=== PATIENT | male | born 1955 | race Caucasian/White ===

== ENCOUNTER 2022-05-21 13:30 | Inpatient (IN) | payer MEDICARE ==
[~2022-05-21] VITALS: Ht 165.1 cm; Wt 187.0 kg
[2022-05-21 16:35] VITALS: BP 129/78
[2022-05-21] MEDS ORDERED: ACETAMINOPHEN 325 MG TABLET PO PRN ×2 (17:00)
[2022-05-21 20:02] VITALS: BP 113/67
[2022-05-21] MEDS: ETHYL ALCOHOL 62% ANTISEPTIC NASAL SANITIZER 0.6 ML AMPUL NASAL SCH (20:49)
[2022-05-21] MEDS: DOCUSATE SODIUM 100 MG CAPSULE PO SCH (20:49)
[2022-05-21] MEDS: MELATONIN 3 MG TABLET PO PRN (20:49)
[2022-05-21] MEDS: ATORVASTATIN CALCIUM 40 MG TABLET PO SCH (20:49)
[2022-05-21] MEDS: SENNA 187 MG TABLET PO SCH (20:49)
[2022-05-21] MEDS: TAMSULOSIN HCL 0.4 MG CAPSULE PO SCH (20:49)
[2022-05-21] MEDS: ChlorproMAZINE HCL 25 MG TABLET PO PRN (23:52)
[2022-05-22] MEDS: ENOXAPARIN SODIUM 40 MG/0.4 ML PF SYRINGE SQ SCH (07:56)
[2022-05-22] MEDS: ETHYL ALCOHOL 62% ANTISEPTIC NASAL SANITIZER 0.6 ML AMPUL NASAL SCH ×2 (07:56→21:17)
[2022-05-22] MEDS: AmLODIPine BESYLATE 10 MG TABLET PO SCH (07:57)
[2022-05-22] MEDS: DOCUSATE SODIUM 100 MG CAPSULE PO SCH ×2 (07:57→20:25)
[2022-05-22] MEDS: LISINOPRIL 10 MG TABLET PO SCH (07:57)
[2022-05-22] MEDS: ASPIRIN 81 MG CHEWABLE TABLET PO SCH (07:57)
[2022-05-22 08:00] VITALS: BP 114/66
[2022-05-22 08:00] LABS: BASOPHILS % (AUTO) 0.1 % (0.0-2.0); EOSINOPHILS % (AUTO) 2.7 % (1.0-6.0); HEMATOCRIT 35.3 % (41-53); HEMOGLOBIN 11.9 g/dL (13.5-17.5); LYMPHOCYTES % (AUTO) 12.2 % (22.0-44.0); MEAN CORPUSCULAR HEMOGLOBIN 31.1 pg (26.0-34.0); MEAN CORPUSCULAR HGB CONC 33.7 G/dL (31.0-37.0); MEAN CORPUSCULAR VOLUME 92 fL (80-100); MONOCYTES # (AUTO) 0.4 K/uL (0.1-1.0); MONOCYTES % (AUTO) 5.3 % (2.0-9.0); NEUTROPHILS # (AUTO) 6.6 K/uL (1.8-7.7); NEUTROPHILS % (AUTO) 79.7 % (40.0-70.0); PLATELET COUNT (AUTO) 310 K/uL (150-450); RED BLOOD CELL COUNT(AUTO) 3.83 MIL/uL (4.50-5.90); RED CELL DISTRIBUTION WIDTH 13.8 % (11.5-14.5)
[2022-05-22 08:24] LABS: ALANINE AMINOTRANSFERASE 68 U/L (12-78); ALBUMIN 2.6 g/dL (3.4-5.0); ALKALINE PHOSPHATASE 75 U/L (46-116); ANION GAP 6 mmol/L (8-16); ASPARTATE AMINOTRANSFERASE 38 U/L (15-37); BILIRUBIN,TOTAL 0.4 mg/dL (0.1-1.0); CALCIUM, TOTAL 8.8 mg/dL (8.8-10.5); CARBON DIOXIDE 29 mmol/L (22-29); CHLORIDE 107 mmol/L (98-107); CREATININE 1.08 mg/dL (0.60-1.30); GLUCOSE,RANDOM 118 mg/dL (70-110); POTASSIUM 4.4 mmol/L (3.5-5.1); SODIUM SERUM 142 mmol/L (136-145); TOTAL PROTEIN, SERUM 6.7 g/dL (6.4-8.2); UREA NITROGEN, BLOOD 24 mg/dL (7-18)
[2022-05-22 08:25] LABS: GLOMERULAR FILTR. RATE CALC > 60 mL/min (>60)
[2022-05-22] MEDS: ChlorproMAZINE HCL 25 MG TABLET PO PRN ×2 (15:41→21:42)
[2022-05-22 20:00] VITALS: BP 138/78
[2022-05-22] MEDS: SENNA 187 MG TABLET PO SCH (20:26)
[2022-05-22] MEDS: MELATONIN 3 MG TABLET PO PRN (21:16)
[2022-05-22] MEDS: ATORVASTATIN CALCIUM 40 MG TABLET PO SCH (21:16)
[2022-05-22] MEDS: TAMSULOSIN HCL 0.4 MG CAPSULE PO SCH (21:17)
[2022-05-23] MEDS ORDERED: FAMOTIDINE 20 MG TABLET PO SCH (07:00)
[2022-05-23 07:23] LABS: CHOL/HDL RATIO 3.1 (4.2-7.3)
[2022-05-23] MEDS: ETHYL ALCOHOL 62% ANTISEPTIC NASAL SANITIZER 0.6 ML AMPUL NASAL SCH ×2 (07:52→20:50)
[2022-05-23] MEDS: ASPIRIN 81 MG CHEWABLE TABLET PO SCH (07:53)
[2022-05-23] MEDS: ENOXAPARIN SODIUM 40 MG/0.4 ML PF SYRINGE SQ SCH (07:53)
[2022-05-23] MEDS: DOCUSATE SODIUM 100 MG CAPSULE PO SCH ×2 (07:53→20:51)
[2022-05-23] MEDS: AmLODIPine BESYLATE 10 MG TABLET PO SCH (07:53)
[2022-05-23] MEDS: LISINOPRIL 10 MG TABLET PO SCH (07:53)
[2022-05-23 08:15] VITALS: BP 114/59
[2022-05-23] MEDS: ChlorproMAZINE HCL 25 MG TABLET PO PRN (14:23)
[2022-05-23] MEDS: BACLOFEN 10 MG TABLET PO SCH ×2 (17:24→20:51)
[2022-05-23 20:00] VITALS: BP 119/59
[2022-05-23] MEDS: ATORVASTATIN CALCIUM 40 MG TABLET PO SCH (20:50)
[2022-05-23] MEDS: MELATONIN 3 MG TABLET PO PRN (20:51)
[2022-05-23] MEDS: TAMSULOSIN HCL 0.4 MG CAPSULE PO SCH (20:51)
[2022-05-23] MEDS: SENNA 187 MG TABLET PO SCH (20:51)
[2022-05-24] MEDS: PANTOPRAZOLE SODIUM 40 MG DR TABLET PO SCH (06:19)
[2022-05-24] MEDS: ASPIRIN 81 MG CHEWABLE TABLET PO SCH (07:56)
[2022-05-24] MEDS: DOCUSATE SODIUM 100 MG CAPSULE PO SCH ×3 (07:57→22:24)
[2022-05-24] MEDS: ENOXAPARIN SODIUM 40 MG/0.4 ML PF SYRINGE SQ SCH (07:57)
[2022-05-24] MEDS: AmLODIPine BESYLATE 10 MG TABLET PO SCH (07:57)
[2022-05-24] MEDS: BACLOFEN 10 MG TABLET PO SCH ×3 (07:57→22:25)
[2022-05-24] MEDS: ETHYL ALCOHOL 62% ANTISEPTIC NASAL SANITIZER 0.6 ML AMPUL NASAL SCH ×2 (07:57→21:07)
[2022-05-24] MEDS: LISINOPRIL 10 MG TABLET PO SCH (07:57)
[2022-05-24 08:15] VITALS: BP 105/53
[2022-05-24 21:03] VITALS: BP 136/69
[2022-05-24] MEDS: ATORVASTATIN CALCIUM 40 MG TABLET PO SCH (22:24)
[2022-05-24] MEDS: SENNA 187 MG TABLET PO SCH (22:25)
[2022-05-24] MEDS: TAMSULOSIN HCL 0.4 MG CAPSULE PO SCH (22:27)
[2022-05-25] MEDS: PANTOPRAZOLE SODIUM 40 MG DR TABLET PO SCH (06:28)
[2022-05-25] MEDS: BACLOFEN 10 MG TABLET PO SCH ×3 (07:42→21:00)
[2022-05-25 08:01] VITALS: BP 128/71
[2022-05-25] MEDS: DOCUSATE SODIUM 100 MG CAPSULE PO SCH ×2 (09:00→20:59)
[2022-05-25] MEDS: ChlorproMAZINE HCL 25 MG TABLET PO PRN (10:19)
[2022-05-25] MEDS: AmLODIPine BESYLATE 10 MG TABLET PO SCH (10:23)
[2022-05-25] MEDS: ASPIRIN 81 MG CHEWABLE TABLET PO SCH (10:25)
[2022-05-25] MEDS: ENOXAPARIN SODIUM 40 MG/0.4 ML PF SYRINGE SQ SCH (10:27)
[2022-05-25] MEDS: ETHYL ALCOHOL 62% ANTISEPTIC NASAL SANITIZER 0.6 ML AMPUL NASAL SCH ×2 (10:34→20:59)
[2022-05-25] MEDS: LISINOPRIL 10 MG TABLET PO SCH (10:34)
[2022-05-25 20:01] VITALS: BP 107/57
[2022-05-25] MEDS: TAMSULOSIN HCL 0.4 MG CAPSULE PO SCH (20:59)
[2022-05-25] MEDS: SENNA 187 MG TABLET PO SCH (21:00)
[2022-05-25] MEDS: ATORVASTATIN CALCIUM 40 MG TABLET PO SCH (21:00)
[2022-05-26 07:35] VITALS: BP 133/82
[2022-05-26] MEDS: PANTOPRAZOLE SODIUM 40 MG DR TABLET PO SCH (07:56)
[2022-05-26] MEDS: ASPIRIN 81 MG CHEWABLE TABLET PO SCH (08:21)
[2022-05-26] MEDS: ETHYL ALCOHOL 62% ANTISEPTIC NASAL SANITIZER 0.6 ML AMPUL NASAL SCH ×2 (08:21→20:25)
[2022-05-26] MEDS: LISINOPRIL 10 MG TABLET PO SCH (08:22)
[2022-05-26] MEDS: AmLODIPine BESYLATE 10 MG TABLET PO SCH (08:22)
[2022-05-26] MEDS: DOCUSATE SODIUM 100 MG CAPSULE PO SCH ×2 (08:22→20:25)
[2022-05-26] MEDS: BACLOFEN 10 MG TABLET PO SCH ×3 (08:22→20:25)
[2022-05-26] MEDS: ENOXAPARIN SODIUM 40 MG/0.4 ML PF SYRINGE SQ SCH (08:22)
[2022-05-26] MEDS: MECLIZINE HCL 25 MG TABLET PO PRN (16:17)
[2022-05-26 20:00] VITALS: BP 132/69
[2022-05-26] MEDS: ATORVASTATIN CALCIUM 40 MG TABLET PO SCH (20:25)
[2022-05-26] MEDS: TAMSULOSIN HCL 0.4 MG CAPSULE PO SCH (20:25)
[2022-05-26] MEDS: SENNA 187 MG TABLET PO SCH (20:26)
[2022-05-27] MEDS: PANTOPRAZOLE SODIUM 40 MG DR TABLET PO SCH (06:52)
[2022-05-27] MEDS: ASPIRIN 81 MG CHEWABLE TABLET PO SCH (07:45)
[2022-05-27] MEDS: ETHYL ALCOHOL 62% ANTISEPTIC NASAL SANITIZER 0.6 ML AMPUL NASAL SCH ×2 (07:45→21:58)
[2022-05-27] MEDS: BACLOFEN 10 MG TABLET PO SCH ×3 (07:46→21:58)
[2022-05-27] MEDS: LISINOPRIL 10 MG TABLET PO SCH (07:46)
[2022-05-27] MEDS: AmLODIPine BESYLATE 10 MG TABLET PO SCH (07:46)
[2022-05-27] MEDS: DOCUSATE SODIUM 100 MG CAPSULE PO SCH ×2 (07:46→21:00)
[2022-05-27] MEDS: ENOXAPARIN SODIUM 40 MG/0.4 ML PF SYRINGE SQ SCH (07:46)
[2022-05-27 08:33] VITALS: BP 138/72
[2022-05-27 20:00] VITALS: BP 119/68
[2022-05-27] MEDS: SENNA 187 MG TABLET PO SCH (21:00)
[2022-05-27] MEDS: ATORVASTATIN CALCIUM 40 MG TABLET PO SCH (21:57)
[2022-05-27] MEDS: TAMSULOSIN HCL 0.4 MG CAPSULE PO SCH (21:57)
[2022-05-28] MEDS: PANTOPRAZOLE SODIUM 40 MG DR TABLET PO SCH (07:04)
[2022-05-28] MEDS: ETHYL ALCOHOL 62% ANTISEPTIC NASAL SANITIZER 0.6 ML AMPUL NASAL SCH ×2 (08:06→20:11)
[2022-05-28] MEDS: ENOXAPARIN SODIUM 40 MG/0.4 ML PF SYRINGE SQ SCH (08:06)
[2022-05-28] MEDS: ASPIRIN 81 MG CHEWABLE TABLET PO SCH (08:06)
[2022-05-28] MEDS: BACLOFEN 10 MG TABLET PO SCH ×3 (08:07→20:12)
[2022-05-28] MEDS: AmLODIPine BESYLATE 10 MG TABLET PO SCH (08:08)
[2022-05-28] MEDS: LISINOPRIL 10 MG TABLET PO SCH (08:08)
[2022-05-28] MEDS: DOCUSATE SODIUM 100 MG CAPSULE PO SCH ×2 (08:10→20:12)
[2022-05-28 08:30] VITALS: BP 131/67
[2022-05-28] MEDS: TAMSULOSIN HCL 0.4 MG CAPSULE PO SCH (20:11)
[2022-05-28] MEDS: ATORVASTATIN CALCIUM 40 MG TABLET PO SCH (20:12)
[2022-05-28] MEDS: SENNA 187 MG TABLET PO SCH (20:12)
[2022-05-28 21:00] VITALS: BP 129/61
[2022-05-29] MEDS: PANTOPRAZOLE SODIUM 40 MG DR TABLET PO SCH (06:18)
[2022-05-29 08:05] VITALS: BP 147/82
[2022-05-29] MEDS: ASPIRIN 81 MG CHEWABLE TABLET PO SCH (08:22)
[2022-05-29] MEDS: DOCUSATE SODIUM 100 MG CAPSULE PO SCH ×2 (08:22→21:52)
[2022-05-29] MEDS: ETHYL ALCOHOL 62% ANTISEPTIC NASAL SANITIZER 0.6 ML AMPUL NASAL SCH ×2 (08:23→21:51)
[2022-05-29] MEDS: ENOXAPARIN SODIUM 40 MG/0.4 ML PF SYRINGE SQ SCH (08:23)
[2022-05-29] MEDS: AmLODIPine BESYLATE 10 MG TABLET PO SCH (08:23)
[2022-05-29] MEDS: BACLOFEN 10 MG TABLET PO SCH ×3 (08:23→21:53)
[2022-05-29] MEDS: LISINOPRIL 10 MG TABLET PO SCH (08:23)
[2022-05-29 10:56] VITALS: BP 147/82
[2022-05-29] MEDS: MECLIZINE HCL 25 MG TABLET PO PRN (13:31)
[2022-05-29 20:30] VITALS: BP 125/72
[2022-05-29] MEDS: ATORVASTATIN CALCIUM 40 MG TABLET PO SCH (21:52)
[2022-05-29] MEDS: TAMSULOSIN HCL 0.4 MG CAPSULE PO SCH (21:52)
[2022-05-29] MEDS: SENNA 187 MG TABLET PO SCH (21:53)
[2022-05-30] MEDS: PANTOPRAZOLE SODIUM 40 MG DR TABLET PO SCH (06:53)
[2022-05-30] MEDS: ENOXAPARIN SODIUM 40 MG/0.4 ML PF SYRINGE SQ SCH (07:23)
[2022-05-30] MEDS: DOCUSATE SODIUM 100 MG CAPSULE PO SCH ×2 (07:26→20:19)
[2022-05-30] MEDS: AmLODIPine BESYLATE 10 MG TABLET PO SCH (07:26)
[2022-05-30] MEDS: BACLOFEN 10 MG TABLET PO SCH (07:26)
[2022-05-30] MEDS: LISINOPRIL 10 MG TABLET PO SCH (07:26)
[2022-05-30] MEDS: ASPIRIN 81 MG CHEWABLE TABLET PO SCH (07:26)
[2022-05-30] MEDS: ETHYL ALCOHOL 62% ANTISEPTIC NASAL SANITIZER 0.6 ML AMPUL NASAL SCH ×2 (07:29→20:19)
[2022-05-30 08:33] VITALS: BP 123/79
[2022-05-30] MEDS ORDERED: BACLOFEN 10 MG TABLET PO PRN (10:15)
[2022-05-30] MEDS: ATORVASTATIN CALCIUM 40 MG TABLET PO SCH (20:19)
[2022-05-30] MEDS: SENNA 187 MG TABLET PO SCH (20:19)
[2022-05-30] MEDS: TAMSULOSIN HCL 0.4 MG CAPSULE PO SCH (20:19)
[2022-05-30] MEDS: MELATONIN 3 MG TABLET PO PRN (20:25)
[2022-05-30 21:00] VITALS: BP 127/80
[2022-05-31] MEDS: PANTOPRAZOLE SODIUM 40 MG DR TABLET PO SCH (06:10)
[2022-05-31] MEDS: ENOXAPARIN SODIUM 40 MG/0.4 ML PF SYRINGE SQ SCH (07:17)
[2022-05-31] MEDS: ETHYL ALCOHOL 62% ANTISEPTIC NASAL SANITIZER 0.6 ML AMPUL NASAL SCH (07:19)
[2022-05-31] MEDS: ASPIRIN 81 MG CHEWABLE TABLET PO SCH (07:19)
[2022-05-31] MEDS: LISINOPRIL 10 MG TABLET PO SCH (07:20)
[2022-05-31] MEDS: DOCUSATE SODIUM 100 MG CAPSULE PO SCH (07:20)
[2022-05-31] MEDS: AmLODIPine BESYLATE 10 MG TABLET PO SCH (07:20)
[2022-05-31 08:08] VITALS: BP 103/68
[2022-05-31] MEDS ORDERED: MECL-134 PO (08:36)
[2022-05-31] MEDS ORDERED: TAMS-13 PO ×2 (08:36→10:08)
[2022-05-31] MEDS ORDERED: PANT-31 PO ×2 (08:36→10:08)
[2022-05-31] MEDS ORDERED: ASPI-1450 PO (08:36)
[2022-05-31] MEDS ORDERED: AMLO-258 PO ×2 (08:36→10:08)
[2022-05-31] MEDS ORDERED: LISI-893 PO ×2 (08:36→10:08)
[2022-05-31] MEDS ORDERED: DOCU-385 PO ×2 (08:36→10:08)
[2022-05-31] MEDS ORDERED: ATOR40TA28 PO (08:36)
[2022-05-31] MEDS ORDERED: BACL10TA PO ×2 (08:36→10:08)
[2022-05-31] MEDS ORDERED: CHLO25TA69 PO (08:36)
[2022-05-31] MEDS ORDERED: ATOR40TA71 PO (10:08)
[2022-05-31] MEDS ORDERED: ASPI81 PO (10:08)
== END 2022-05-31 14:00 | disposition home or self-care (01) | DRG 64 ==
LOC: 2WR 16:36
PROVIDERS: ADMIT Physical Medicine & Rehabilitation; ATTEND Physical Medicine & Rehabilitation
DX: I63.9 Cerebral infarction, unspecified (principal); J69.0 Pneumonitis due to inhalation of food and vomit; E46 Unspecified protein-calorie malnutrition; G91.1 Obstructive hydrocephalus; Z68.44 Body mass index [BMI] 60.0-69.9, adult; N40.0 Benign prostatic hyperplasia without lower urinary tract symptoms; I10 Essential (primary) hypertension; R13.10 Dysphagia, unspecified; R27.0 Ataxia, unspecified
CPT/HCPCS: 74230; 80053; 80061; 85025; 87081; 92507; 92523; 92526; 92611; 93970; 97110; 97112; 97116; 97163; 97166; 97530; 97535; 99366; J1650